=== PATIENT | male | born 1935 | race Asian ===

== ENCOUNTER 2020-02-12 21:25 | Emergency (ER) | payer OTHER ==
[~2020-02-12] VITALS: Ht 172.7 cm; Wt 72.6 kg
[2020-02-12 22:22] LABS: PLATELET COUNT 244 K/uL (142-355)
[2020-02-12 22:40] LABS: POTASSIUM 3.9 mmol/L (3.6-5.2)
[2020-02-12 23:37] VITALS: BP 154/79; TEMP 98.2
[2020-02-13] MEDS ORDERED: CADUET10 MG/10 M PO (00:26)
[2020-02-13] MEDS ORDERED: ASPIRIN CHLD81 MG PO (00:27)
[2020-02-13] MEDS ORDERED: HYDRALAZINE25 MG PO (00:28)
[2020-02-13] MEDS ORDERED: MILK OF MAGNESI1 SUS PO (00:29)
[2020-02-13] MEDS ORDERED: POTASSIUM25 MEQ PO (00:31)
[2020-02-13] MEDS ORDERED: TAMS0.4C PO (00:32)
== END 2020-02-12 23:37 | disposition other institution (70) ==
LOC: ED 21:25
PROVIDERS: Family Medicine
DX: R45.1 Restlessness and agitation (principal); F03.91 Unspecified dementia, unspecified severity, with behavioral disturbance; Z03.818 Encounter for observation for suspected exposure to other biological agents ruled out; Z04.6 Encounter for general psychiatric examination, requested by authority
CPT/HCPCS: 36415; 80053; 81000; 85027; 87635; 93005; 99283; U0002